=== PATIENT | female | born 1970 | race Caucasian/White ===

== ENCOUNTER 2016-11-22 13:32 | Emergency (ER) | payer BC, OTHER ==
[~2016-11-22] VITALS: Ht 170.2 cm; Wt 84.5 kg
[2016-11-22 13:43] VITALS: Ht 170.2 cm; Wt 84.5 kg
[2016-11-22] MEDS ORDERED: ALUMINUM/MAGNESIUM SUSP 30 ML UDC PO STA (14:30)
[2016-11-22] MEDS ORDERED: FAMOTIDINE 20MG/102 ML D5W IV STA (14:30)
[2016-11-22] MEDS ORDERED: LIDOCAINE HCL 2% VISC SOLN 20 ML UDC PO STA (14:30)
[2016-11-22] MEDS ORDERED: PARO1TAB27 PO (14:42)
[2016-11-22] MEDS ORDERED: IBUP-103 PO (14:42)
--- NOTE | 2016-11-22 15:22 | DIAGNOSTIC IMAGING REPORT ---
ABDOMEN 2VIEW W/PA CHEST RTN HISTORY:46 yearsFemaleEPIGASTRIC PAIN, BELCHING COMPARISON: None available. TECHNIQUE: Frontal view of the chest with upright and supine views of the abdomen. FINDINGS: Cardiomediastinal and hilar silhouettes are within normal limits. No pneumothorax, pleural effusion, focal airspace consolidation or overt pulmonary edema. Bones are grossly intact. No pneumoperitoneum on the upright projection. The bowel gas pattern is nonobstructive. No fracture or urolith identified. Transitional lumbosacral anatomy is noted. There is an ill-defined nonspecific sclerotic focus measuring 1.6 x 1.0 cm involving the right iliac bone just superior to the acetabulum. This is nonspecific and may reflect a bone island. IMPRESSION: 1. No acute cardiopulmonary process. 2. No bowel obstruction or pneumoperitoneum. The above report was generated using voice recognition software. It may contain grammatical, syntax or spelling errors. Electronically signed by: Gaetano Marinelli 11/22/2016 3:21 PM Dictated Date/Time: 11/22/2016 3:17 PM
[2016-11-22 15:29] LABS: BASO % 0.2 %; BASO ABS # 0.02 K/uL (0-0.2); BUN/CREATININE RATIO 13.6 (10-20); CALCIUM 9.6 mg/dl (8.5-10.1); COMPLETE YES; CREATININE 1.1 mg/dl (0.60-1.20); EOS % 0.2 %; HEMATOCRIT 41.4 % (37-47); IG% 0.1 %; LYMPH % 21.5 %; LYMPH ABS # 1.85 K/uL (1.2-3.4); MEAN CELL VOLUME 83.8 fL (80-100); MEAN CORPUSCULAR HEMOGLOBIN 28.9 pg (25-34); MEAN CORPUSCULAR HGB CONC 34.5 g/dl (32-36); MEAN PLATELET VOLUME 10.4 fL (7.4-10.4); MONO % 8.5 %; NEUT % 69.5 %; PLATELET COUNT 371 K/uL (130-400); POTASSIUM 3.5 mmol/L (3.5-5.1); RED BLOOD COUNT 4.94 M/uL (4.2-5.4); WHITE BLOOD COUNT 8.59 K/uL (4.8-10.8)
[2016-11-22 15:36] LABS: PREG INTERNAL NEGATIVE QC NEG CLEAR BACKGROUND; PREG INTERNAL POSITIVE QC POS CONTROL LINE
[2016-11-22] MEDS ORDERED: OMEP40CA41 PO (16:18)
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
[2016-11-22 16:31] VITALS: BP 134/113; PULSE 93; TEMP 37.2; O2SAT 96
== END 2016-11-22 16:31 | disposition home or self-care (01) ==
LOC: C.EDB 13:37
DX: K30 Functional dyspepsia (principal); R10.13 Epigastric pain; F41.9 Anxiety disorder, unspecified; G89.29 Other chronic pain; M54.6 Pain in thoracic spine